=== PATIENT | female | born 1985 | race Caucasian/White ===

== ENCOUNTER 2019-10-26 09:12 | Emergency (ER) | payer OTHER ==
--- NOTE | 2019-10-26 09:23 | PDOC ---
History of Present Illness - History of Present Illness Initial Comments: 10/26/19 09:23 34 year old A0 currently 17 weeks who presents after slipping on ice as she was walking to the car and falling onto her R buttock and thigh. The patient was able to walk again but very slowly. She complains of pain to the R low back, R thigh and buttock. She reports 1st trimester bleeding in this but has no other medical problems. She has no other complaints. ROS GENERAL/CONSTITUTIONAL: No fever or chills. No weakness. CARDIOVASCULAR: No chest pain or shortness of breath RESPIRATORY: No cough, wheezing, or hemoptysis. GASTROINTESTINAL: No nausea, vomiting, diarrhea or constipation. GENITOURINARY: No dysuria, frequency, or change in urination. MUSCULOSKELETAL: + joint or muscle swelling or pain. No neck or back pain. SKIN: No rash PE GENERAL: Awake, alert, and fully oriented, in no acute distress HEAD: No signs of trauma, normocephalic, atraumatic EYES: EOMI, sclera anicteric, conjunctiva clear ENT: oropharynx clear without exudates. Moist mucosa NECK: Normal ROM, supple LUNGS: No distress, speaks full sentences, clear to auscultation bilaterally HEART: Regular rate and rhythm, normal S1 and S2, no murmurs, rubs or gallops, peripheral pulses normal and equal bilaterally. BACK: R paraspinal tenderness ABDOMEN: Soft, nontender, abd, No guarding, no rebound. No masses EXTREMITIES : Normal inspection, Normal range of motion, no edema. No clubbing or cyanosis. NEUROLOGICAL: Cranial nerves II through XII grossly intact. Normal speech, no focal sensorimotor deficits SKIN: Warm, Dry, normal turgor, no rashes or lesions noted MDM DDX including but not limited to: r/o intruterine abnml [facility] ED Course: Bedside US with attending Dr. Millan showed live iup with good movement FHR of 124bpm Patient ready for discharge F/u plan and return precuations Cecilia Peck PGY2 Emergency Medicine 10/26/19 10:13 <Cecilia Peck - Last Filed: 10/26/19 10:18> <Danielle Millan - Last Filed: 10/26/19 10:33> - General Stated Complaint: FALL 19WKS Time Seen by Provider: 10/26/19 09:22 Past History <Cecilia Peck - Last Filed: 10/26/19 10:18> <Danielle Millan - Last Filed: 10/26/19 10:33> - Past Medical History Allergies/Adverse Reactions: Allergies Allergy/AdvReac Type Severity Reaction Status Date / Time No Known Allergies Allergy Verified 10/26/19 09:25 Home Medications: Ambulatory Orders Formula Tablet 10/26/19 *Physical Exam - Vital Signs Last Vital Signs Temp Pulse Resp BP Pulse Ox 97.6 F 86 18 109/68 99 10/26/19 09:20 10/26/19 09:20 10/26/19 09:20 10/26/19 09:20 10/26/19 09:20 <Danielle Millan - Last Filed: 10/26/19 10:33> Procedures - Bedside Ultrasound 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 views obtained: TV and sagittal uterus, findings include live IUP visualized dated at, FHR at 145-150 bpm. no pelvic FF. Impression: live IUP. estimated dates at 18 w/2-4 days, david with LMP 06/19/19, measured by bpd <Danielle Millan - Last Filed: 10/26/19 10:33> ED Treatment Course - Medications Given in the ED: ED Medications Discontinued Medications Generic Name Dose Route Start Last Admin Trade Name Freq PRN Reason Stop Dose Admin Acetaminophen 650 mg 10/26/19 09:48 10/26/19 10:06 Tylenol - PO 10/26/19 09:49 Not Given ONCE ONE Lidocaine 1 patch 10/26/19 09:48 10/26/19 10:06 Lidoderm Patch - TP 10/26/19 09:49 1 patch ONCE ONE Administration <Danielle Millan - Last Filed: 10/26/19 10:33> Discharge - Discharge Information Problems reviewed: Yes - Admission No <Cecilia Peck - Last Filed: 10/26/19 10:18> <Danielle Millan - Last Filed: 10/26/19 10:33> - Discharge Information Clinical Impression/Diagnosis: Fall Qualifiers: Encounter type: initial encounter Qualified Code(s): W19.XXXA - Unspecified fall, initial encounter Strain of right buttock Qualifiers: Encounter type: initial encounter Qualified Code(s): S76.011A - Strain of muscle, fascia and tendon of right hip, initial encounter Condition: Stable Disposition: HOME - Follow up/Referral Referrals: Sakshi Arce MD [Staff Physician] - - Patient Discharge Instructions Patient Printed Discharge Instructions: DI for Musculoskeletal Pain Additional Instructions: You were seen in the ED for complaints of R sided buttocks and thigh pain after a fall. In the ED you were evaluated with ultrasound Your results showed a normal movement, FHR of 145bpm and normal appearing fetus. There does not appear to be an acute need for immediate hospitalization. You are advised to follow up with your Primary Care Physician and OBGYN within 1 week. Take Tylenol for pain relief and take plenty of rest. Return to the ED immediately if you experience worsening leg and back pain, abdominal pain or vaginal bleeding. Print Language: ESTONIAN
[2019-10-26 09:25] VITALS: BMI 27.4
--- NOTE | 2019-10-26 09:30 | PDOC ---
Attending Attestation - Resident Resident Name: Cecilia Peck - ED Attending Attestation I have performed the following: I have examined & evaluated the patient, The case was reviewed & discussed with the resident, I agree w/resident's findings & plan - HPI HPI: 10/26/19 10:26 34 year old A0 currently 17 weeks who presents after slipping on ice as she was walking to the car and falling onto her R buttock and thigh. The patient was able to walk again but very slowly. She complains of pain to the R low back, R thigh and buttock. She reports 1st trimester bleeding in this but has no other medical problems. She has no other complaints. - Physicial Exam PE: 10/26/19 10:26 Agree with the resident's HPI and PE as documented in the electronic medical record. NAD, well appearing, EOMI, PERRL, nl conjunctiva, anicteric; neck supple. lungs clear, RRR, abdomen soft nontender. no rebound, guarding. Back nontender. ZAMORA x4, no focal neuro deficits. No peripheral edema. normal color for ethnicity , WWP. +RIGHT LATERAL buttock TTP, no ecchymosis or crepitus. pelvis stable FROM in all extrem - Medical Decision Making 10/26/19 09:29 Vital Signs Temp Pulse Resp BP Pulse Ox 97.6 F 86 18 109/68 99 10/26/19 09:20 10/26/19 09:20 10/26/19 09:20 10/26/19 09:20 10/26/19 09:20 10/26/19 10:27 Vital signs reviewed within normal limits. Bedside pelvic US performed for female with VB and /or abdominal pain. views obtained: TV and sagittal uterus, findings include live IUP visualized dated at, FHR at 145-150 bpm. no pelvic FF. Impression: live IUP. estimated dates at 18 w/2-4 days, david with LMP 06/19/19 Patient has no abdominal tenderness. Declines analgesia, given Lidoderm patch for the right buttock pain/myofascial pain. Patient is ambulatory, no vaginal bleeding. wellbeing was assessed, with appropriate heart rate and motion. Patient is comfortable with follow-up and pelvic rest and avoid strenuous activity such as heavy lifting, strenuous activities, walking outside with slippery conditions. Follow-up with Dr Arce for continued care. return precautions given, dizziness, syncope, worsening pain, vag bleeding. 10/26/19 10:29
[2019-10-26] MEDS ORDERED: ACETAMINOPHEN 325 MG TABLET (FP) PO ONE (09:48)
[2019-10-26] MEDS ORDERED: LIDOCAINE 5% TOPICAL PATCH TP ONE (09:48)
[2019-10-26] MEDS ORDERED: LIDOCAINE 5% TOPICAL PATCH ONE (09:58)
[2019-10-26] MEDS ORDERED: ACETAMINOPHEN 325 MG TABLET (FP) ONE (09:59)
[2019-10-26 10:53] VITALS: BP 112/72; PULSE 82; TEMP 97.7
[2019-10-26] MEDS ORDERED: LIDOCAINE PATCH REMOVAL MC SCH (22:00)
== END 2019-10-26 10:50 | disposition home or self-care (01) ==
LOC: JER 09:12
DX: S76.011A Strain of muscle, fascia and tendon of right hip, initial encounter (principal); X58.XXXA Exposure to other specified factors, initial encounter; Y93.89 Activity, other specified; Y92.89 Other specified places as the place of occurrence of the external cause
CPT/HCPCS: 76815; 99282-25